=== PATIENT | male | born 1950 | race Caucasian/White ===

== ENCOUNTER 2016-12-31 09:41 | Day surgery (SDC) | payer MEDICARE ==
[~2016-12-31 09:41] MED LIST: IV START KIT ONE; LACTATED RINGERS 0 ML ONE; LIDOCAINE 2% (PRES FREE) 5 ML VIAL ONE; PROPOFOL 0 ML IV ONE
[2016-12-31] MEDS ORDERED: LACTATED RINGERS 1,000 ML ONE (09:51)
[2016-12-31] MEDS ORDERED: IV START KIT ONE (09:51)
[2016-12-31] MEDS ORDERED: LACTATED RINGERS 1,000 ML IV SCH (10:15)
[2016-12-31] MEDS ORDERED: PROPOFOL 20 ML IV ONE (10:46)
--- NOTE | 2017-01-02 08:37 | SURGPATH ---
[facility] [address] [place] [id number] Patient Name: PONCE ROQUE MR#: [id number] : 1950 Gender: M Specimen #: [id number] Collected: 12/31/2016 Received: 01/01/2017 Reported: 01/02/2017 Submitting Phys: FARHAT FREEMAN Copy To Phys: ADELINA LYNN [facility] Clinical History / Pre-Operative Diagnosis: History of colon polyps Specimen Source / Surgical Procedure Performed: Colon polypectomy 10 cm Interpretation: COLON POLYP AT 10 CM, BIOPSY: - HYPERPLASTIC POLYP Electronically Signed Out Kendall Jean M.D. Gross Description: The specimen is received in formalin labeled with the patient's name and "colon polyp 10 cm". The specimen consists of two fragments of chen soft tissue, 0.4 x 0.2 x 0.1 cm in aggregate. Submitted in toto in one cassette. CRISTIANE Rodriguez Microscopic Description: Microscopic performed. 1: [id number] K62.1
== END 2016-12-31 13:02 | disposition home or self-care (01) ==
LOC: SDC 09:41
PROVIDERS: ATTEND Surgery
PROC: 0DBP8ZX Excision of Rectum, Via Natural or Artificial Opening Endoscopic, Diagnostic (ICD-10-PCS; principal; 2016-12-31)
DX: K63.5 Polyp of colon (principal); Z86.010 Personal history of colon polyps; I10 Essential (primary) hypertension; Z85.46 Personal history of malignant neoplasm of prostate; F43.10 Post-traumatic stress disorder, unspecified